=== PATIENT | male | born 2000 | race Caucasian/White ===

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

== ENCOUNTER 2020-07-13 01:17 | Inpatient (IN) | payer MEDICAID, OTHER ==
--- NOTE | 2020-07-13 01:58 | ED ---
Psych HPI - General Chief Complaint: Psychiatric Symptoms Stated Complaint: Mental Health Time Seen by Provider: 07/13/20 01:36 Source: patient, police, RN notes reviewed, old records reviewed Mode of arrival: ambulatory - History of Present Illness Initial Comments: This is a 20-year-old male DF for evaluation petition for psychiatric evaluation alert denying. Patient states he did say he wanted to kill himself but denies being suicidal currently. Patient does admit to benzodiazepine use. Otherwise he denies any other significant complaints. Again reiterates that he is not homicidal or suicidal patient presents by police department under petition by mother for psychiatric evaluation MD Complaint: suicidal ideation, feels depressed -: days(s) Associated Psychiatric Symptoms: depression, suicidal ideation History of same: Yes Quality: constant Improves With: none Worsens With: none Context: not taking psychiatric medications Associated Symptoms: denies other symptoms Treatments Prior to Arrival: placed on mental health hold If Self Harm: admits thoughts of self harm - Related Data Home Medications Medication Instructions Recorded Confirmed Escitalopram [Lexapro] 5 mg PO DAILY 11/04/19 11/05/19 Ondansetron Odt [Zofran ODT] 4 mg PO TID PRN 11/05/19 11/05/19 hydrOXYzine pamoate [hydrOXYzine 50 mg PO BID PRN 11/05/19 11/05/19 PAMOATE] Previous Rx's Medication Instructions Recorded Famotidine [Pepcid] 20 mg PO BID #30 tablet 11/06/19 Allergies Allergy/AdvReac Type Severity Reaction Status Date / Time No Known Allergies Allergy Verified 07/13/20 01:27 Review of Systems ROS Statement: Those systems with pertinent positive or pertinent negative responses have been documented in the HPI. ROS Other: All systems not noted in ROS Statement are negative. Past Medical History Past Medical History: No Reported History History of Any Multi-Drug Resistant Organisms: None Reported Past Surgical History: No Surgical Hx Reported Past Psychological History: Anxiety, Panic Disorder, PTSD Smoking Status: Never smoker Past Alcohol Use History: None Reported Past Drug Use History: Prescription Drug Abuse - Past Family History Mother Additional Family Medical History / Comment(s): anxiety General Exam General appearance: alert, in no apparent distress Head exam: Present: atraumatic, normocephalic, normal inspection Eye exam: Present: normal appearance, PERRL, EOMI. Absent: scleral icterus, conjunctival injection, periorbital swelling ENT exam: Present: normal exam, mucous membranes moist Neck exam: Present: normal inspection. Absent: tenderness, meningismus, lymphadenopathy Respiratory exam: Present: normal lung sounds bilaterally. Absent: respiratory distress, wheezes, rales, rhonchi, stridor Cardiovascular Exam: Present: regular rate, normal rhythm, normal heart sounds. Absent: systolic murmur, diastolic murmur, rubs, gallop, clicks GI/Abdominal exam: Present: soft, normal bowel sounds. Absent: distended, tenderness, guarding, rebound, rigid Extremities exam: Present: normal inspection, full ROM, normal capillary refill. Absent: tenderness, pedal edema, joint swelling, calf tenderness Back exam: Present: normal inspection Neurological exam: Present: alert, oriented X3, CN II-XII intact Psychiatric exam: Present: normal affect, normal mood Skin exam: Present: warm, dry, intact, normal color. Absent: rash Course Vital Signs 07/13/20 01:21 Temperature 98.4 F Pulse Rate 78 Respiratory 20 Rate Blood Pressure 111/74 O2 Sat by Pulse 100 Oximetry - Reevaluation(s) Reevaluation #1: 07/13/20 03:14 Medical record is reviewed 07/13/20 03:14 Medical clear for psychiatric evaluation Reevaluation #2: 07/13/20 05:16 Patient is seen by psychiatry here in the ER Medical Decision Making - Medical Decision Making 28-year-old male DF for evaluation patient will be admitted for psychiatric evaluation and treatment - Lab Data Result diagrams: 07/13/20 04:08 07/13/20 04:08 Lab Results 07/13/20 07/13/20 07/13/20 Range/Units 03:08 04:08 04:08 WBC 5.0 (4.0-11.0) k/uL RBC 5.25 (4.30-5.90) m/uL Hgb 15.7 (13.0-17.5) gm/dL Hct 46.9 (39.0-53.0) % MCV 89.3 (80.0-100.0) fL MCH 30.0 (25.0-35.0) pg MCHC 33.5 (31.0-37.0) g/dL RDW 12.6 (11.5-15.5) % Plt Count 269 (150-450) k/uL MPV 6.5 Neutrophils % 55 % Lymphocytes % 30 % Monocytes % 9 % Eosinophils % 4 % Basophils % 1 % Neutrophils # 2.8 (1.3-7.7) k/uL Lymphocytes # 1.5 (1.0-4.8) k/uL Monocytes # 0.4 (0-1.0) k/uL Eosinophils # 0.2 (0-0.7) k/uL Basophils # 0.1 (0-0.2) k/uL PT 11.2 (9.0-12.0) sec INR 1.1 (<1.2) Sodium (137-145) mmol/L Potassium (3.5-5.1) mmol/L Chloride (98-107) mmol/L Carbon Dioxide (22-30) mmol/L Anion Gap mmol/L BUN (9-20) mg/dL Creatinine (0.66-1.25) mg/dL Est GFR (CKD-EPI)AfAm (>60 ml/min/1.73 sqM) Est GFR (CKD-EPI)NonAf (>60 ml/min/1.73 sqM) Glucose (74-99) mg/dL Calcium (8.4-10.2) mg/dL Phosphorus (2.5-4.5) mg/dL Magnesium (1.6-2.3) mg/dL Total Bilirubin (0.2-1.3) mg/dL AST (17-59) U/L ALT (4-49) U/L Alkaline Phosphatase (38-126) U/L Creatine Kinase (55-170) U/L CK-MB (CK-2) (0.0-2.4) ng/mL Total Protein (6.3-8.2) g/dL Albumin (3.5-5.0) g/dL Lipase (23-300) U/L Salicylates mg/dL Urine Opiates Screen Not Detected (NotDetected) Ur Oxycodone Screen Not Detected (NotDetected) Urine Methadone Screen Not Detected (NotDetected) Ur Propoxyphene Screen Not Detected (NotDetected) Acetaminophen ug/mL Ur Barbiturates Screen Not Detected (NotDetected) U Tricyclic Antidepress Not Detected (NotDetected) Ur Phencyclidine Scrn Not Detected (NotDetected) Ur Amphetamines Screen Not Detected (NotDetected) U Methamphetamines Scrn Not Detected (NotDetected) U Benzodiazepines Scrn Detected H (NotDetected) Urine Cocaine Screen Not Detected (NotDetected) U Marijuana (THC) Screen Detected H (NotDetected) Serum Alcohol mg/dL 07/13/20 07/13/20 Range/Units 04:08 04:08 WBC (4.0-11.0) k/uL RBC (4.30-5.90) m/uL Hgb (13.0-17.5) gm/dL Hct (39.0-53.0) % MCV (80.0-100.0) fL MCH (25.0-35.0) pg MCHC (31.0-37.0) g/dL RDW (11.5-15.5) % Plt Count (150-450) k/uL MPV Neutrophils % % Lymphocytes % % Monocytes % % Eosinophils % % Basophils % % Neutrophils # (1.3-7.7) k/uL Lymphocytes # (1.0-4.8) k/uL Monocytes # (0-1.0) k/uL Eosinophils # (0-0.7) k/uL Basophils # (0-0.2) k/uL PT (9.0-12.0) sec INR (<1.2) Sodium 139 (137-145) mmol/L Potassium 4.4 (3.5-5.1) mmol/L Chloride 100 (98-107) mmol/L Carbon Dioxide 28 (22-30) mmol/L Anion Gap 11 mmol/L BUN 17 (9-20) mg/dL Creatinine 1.14 (0.66-1.25) mg/dL Est GFR (CKD-EPI)AfAm >90 (>60 ml/min/1.73 sqM) Est GFR (CKD-EPI)NonAf >90 (>60 ml/min/1.73 sqM) Glucose 105 H (74-99) mg/dL Calcium 10.3 H (8.4-10.2) mg/dL Phosphorus 4.8 H (2.5-4.5) mg/dL Magnesium 2.3 (1.6-2.3) mg/dL Total Bilirubin 1.0 (0.2-1.3) mg/dL AST 20 (17-59) U/L ALT 13 (4-49) U/L Alkaline Phosphatase 57 (38-126) U/L Creatine Kinase 117 (55-170) U/L CK-MB (CK-2) 0.4 (0.0-2.4) ng/mL Total Protein 7.9 (6.3-8.2) g/dL Albumin 4.9 (3.5-5.0) g/dL Lipase 140 (23-300) U/L Salicylates <1.0 mg/dL Urine Opiates Screen (NotDetected) Ur Oxycodone Screen (NotDetected) Urine Methadone Screen (NotDetected) Ur Propoxyphene Screen (NotDetected) Acetaminophen <10.0 ug/mL Ur Barbiturates Screen (NotDetected) U Tricyclic Antidepress (NotDetected) Ur Phencyclidine Scrn (NotDetected) Ur Amphetamines Screen (NotDetected) U Methamphetamines Scrn (NotDetected) U Benzodiazepines Scrn (NotDetected) Urine Cocaine Screen (NotDetected) U Marijuana (THC) Screen (NotDetected) Serum Alcohol <10 mg/dL - EKG Data -: EKG Interpreted by Me (EKG is sinus rhythm 69 MA 164 QRS 92 QTC 420) Disposition Clinical Impression: Benzodiazepine withdrawal, Depression, Suicidal ideation Disposition: TRANSFER TO PSYCH HOSP/UNIT Condition: Fair Is patient prescribed a controlled substance at d/c from ED?: No Referrals: None,Stated [Primary Care Provider] - 1-2 days
[2020-07-13 03:40] LABS: Amphetamine Screen,Urine Not Detected (NotDetected); Barbiturate Screen,Urine Not Detected (NotDetected); Benzodiazepines Screen,Urine Detected (NotDetected); Cocaine Screen,Urine Not Detected (NotDetected); Methadone Screen, Urine Not Detected (NotDetected); Opiate Screen,Urine Not Detected (NotDetected); Oxycodone Screen, Urine Not Detected (NotDetected); Phencyclidine Screen,Urine Not Detected (NotDetected); Tricyclic Antidepressant,Urine Not Detected (NotDetected); Urn Cannabinoid Scrn Detected (NotDetected)
[2020-07-13 04:35] LABS: Basophils # (A) 0.1 k/uL (0-0.2); Basophils % (A) 1 %; Eosinophils # (A) 0.2 k/uL (0-0.7); Eosinophils % (A) 4 %; HCT 46.9 % (39.0-53.0); HGB 15.7 gm/dL (13.0-17.5); Lymphocytes # (A) 1.5 k/uL (1.0-4.8); Lymphocytes % (A) 30 %; MCHC 33.5 g/dL (31.0-37.0); MCV 89.3 fL (80.0-100.0); Mean Platelet Volume 6.5; Monocytes # (A) 0.4 k/uL (0-1.0); Monocytes % (A) 9 %; Neutrophils # (A) 2.8 k/uL (1.3-7.7); Neutrophils % (A) 55 %; Platelet Count 269 k/uL (150-450); RBC 5.25 m/uL (4.30-5.90); RDW 12.6 % (11.5-15.5)
[2020-07-13] MEDS ORDERED: LORazepam 2 MG/ML INJ IM STA (04:37)
[2020-07-13 04:52] LABS: INR 1.1 (<1.2); Prothrombin Time 11.2 sec (9.0-12.0)
[2020-07-13 04:53] LABS: ALT 13 U/L (4-49); AST 20 U/L (17-59); Acetaminophen <10.0 ug/mL; African American GFR (CKD) >90 (>60 ml/min/1.73 sqM); Albumin 4.9 g/dL (3.5-5.0); Alcohol <10 mg/dL; Alkaline Phosphatase 57 U/L (38-126); Anion Gap 11 mmol/L; Blood Urea Nitrogen 17 mg/dL (9-20); Calcium 10.3 mg/dL (8.4-10.2); Carbon Dioxide 28 mmol/L (22-30); Chloride 100 mmol/L (98-107); Creatine Kinase 117 U/L (55-170); Glucose 105 mg/dL (74-99); Lipase 140 U/L (23-300); Magnesium 2.3 mg/dL (1.6-2.3); Non-African American GFR(CKD) >90 (>60 ml/min/1.73 sqM); Phosphorus 4.8 mg/dL (2.5-4.5); Potassium 4.4 mmol/L (3.5-5.1); Salicylate <1.0 mg/dL; Sodium 139 mmol/L (137-145); Total Protein 7.9 g/dL (6.3-8.2)
[2020-07-13] MEDS ORDERED: ACETAMINOPHEN TAB 325 MG TAB PO PRN (05:44)
[2020-07-13] MEDS ORDERED: MAG HYDROX/AL HYDROX/SIMETH 30 ML CUP PO PRN (05:44)
[2020-07-13] MEDS ORDERED: MAGNESIUM HYDROXIDE 2,400 MG/10 ML CUP PO PRN (05:44)
[2020-07-13] MEDS ORDERED: HALOPERIDOL LACTATE 5 MG/ML 1 ML VIAL IM PRN (05:48)
[2020-07-13] MEDS: haloperidoL 5 MG TAB PO PRN ×2 (06:05→14:11)
[2020-07-13] MEDS: ESCITALOPRAM 5 MG TAB PO SCH (11:43)
[2020-07-13] MEDS: NICOTINE 14MG/24HR PATCH TRANSDERM SCH (11:43)
[2020-07-13 13:55] VITALS: BMI 3905.5
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
[2020-07-14 08:09] LABS: Calcium 10.2 mg/dL (8.4-10.2)
[2020-07-14] MEDS: NICOTINE 14MG/24HR PATCH TRANSDERM SCH (08:27)
[2020-07-14] MEDS: haloperidoL 5 MG TAB PO PRN (08:28)
[2020-07-14] MEDS: ESCITALOPRAM 5 MG TAB PO SCH (12:05)
[2020-07-14] MEDS ORDERED: LORazepam 2 MG/ML INJ IM STA (13:59)
[2020-07-14 15:07] LABS: Hemoglobin A1C 5.1 % (4.0-6.0)
--- NOTE | 2020-07-14 15:34 | P.PN ---
Progress Note - Text Progress Note Date: 07/14/20 Clinical Problems: Probable benzodiazepine overdose, benzodiazepine withdrawal, Benzodiazepine use disorder severe, rule out cognitive disorder due to closed head injury, rule out mood disorder secondary close head injury, personality disorder, rule out amphetamine use disorder, history of ADHD. Interim history: I reviewed the medical record and interviewed the patient. He demanded to be discharged from the hospital. He repeatedly denied that he had attempted suicide but unlike yesterday did not deny that he can expressed suicidal thoughts to his mother, his sister and the police. He kept repeating that he "has to leave" because they are "stealing from me." I explained that we have submitted the petition and supporting paperwork to probate court for involuntary hospitalization. We cannot discharge him until at least he meets with his document review attorney. When he realized that he cannot talk talk me into discharge him he began to flail his arms and a spastic manner. He complained of feeling unwell, anxious and lightheaded. He then fell to the floor and began crying that he hit his head. I called nursing to assist in moving him to his room. He felt to the mireles on his way to the room. The level of distress with administered 1 mg of Ativan IM. Medical consultation appreciated. Mental status exam: He presented as a disheveled and unkempt young male who made eye contact and did not appear to fully attend or concentrate to the interview. He had no distinguishing features or prominent physical abnormalities. He had a distressed facial expression. He was initially alert and oriented to person and place. He showed spastic movements of the arm when he became distressed. His speech was spontaneous and perseverative. Affect was anxious anxious, demanding and angry. He did not express suicidal ideation, wishes or homicidal ideation. Express her feelings of helplessness over this hospitalization. Did not express ideas reference, paranoid ideation or delusions. His thinking was concrete and associations did not fully organized and goal directed. He denied hallucinations did not appear to be responding to internal stimuli. Assessment: Karolyn Young man who has a reported history of a closed head injury. He presented involuntarily after he made suicidal statements to several people including the police. He is demanding discharge and when he realized he would not be discharge he became acutely distressed and almost hysterical. Plan: Continue inpatient treatment. Computed tomography scan of the head. Safety precautions. Deferral hearing pending. Continue Lexapro 5 mg daily and Haldol 5 mg by mouth/IM every 6 hours for agitation acute psychosis. Habitrol for smoking cessation. Encourage participation in therapeutic groups and activities. Evaluate clinical status response to treatment on a daily basis.
--- NOTE | 2020-07-14 15:37 | CT ---
EXAMINATION TYPE: CT brain wo con DATE OF EXAM: 07/14/2020 COMPARISON: None HISTORY: 20-year-old female with pain after fall TECHNIQUE: Examination was done in axial plane without intravenous contrast. Coronal and sagittal r econstructions performed. CT DLP: 1144.7 mGycm Automated exposure control for dose reduction was used. FINDINGS: There is no evidence of acute intracranial hemorrhage, acute ischemic changes, mass, mass-effect, or extra-axial fluid collection. There is no effacement of cerebral sulci or basal subarachnoid cister ns. There is no hydrocephalus. There is no midline shift. Gonzalez-white matter distinction is preserv ed. There is normal variation with persistent CSP. Paranasal sinuses and mastoid air cells are well pneumatized. Orbits and globes are intact. IMPRESSION: No acute intracranial abnormality seen.
[2020-07-14] MEDS ORDERED: diphenhydrAMINE 25 MG CAP PO PRN (15:38)
[2020-07-14] MEDS: diphenhydrAMINE 50 MG/ML 1 ML VIAL IM PRN (15:47)
[2020-07-15] MEDS ORDERED: IBUPROFEN 600 MG TAB PO PRN (07:56)
[2020-07-15] MEDS ORDERED: LORazepam 1 MG TAB PO STA (07:58)
[2020-07-15] MEDS: diphenhydrAMINE 50 MG/ML 1 ML VIAL IM PRN ×2 (08:13→16:03)
[2020-07-15] MEDS: ESCITALOPRAM 5 MG TAB PO SCH (08:58)
[2020-07-15] MEDS: NICOTINE 14MG/24HR PATCH TRANSDERM SCH (09:04)
[2020-07-15] MEDS: chlordiazePOXIDE 25 MG CAP PO SCH ×3 (09:08→21:02)
[2020-07-15] MEDS ORDERED: LORazepam 2 MG/ML INJ IM PRN (09:56)
[2020-07-15] MEDS ORDERED: BENZTROPINE MESYLATE 1 MG TAB PO ONE (12:11)
--- NOTE | 2020-07-15 12:18 | XR ---
EXAMINATION TYPE: XR shoulder complete RT DATE OF EXAM: 07/15/2020 CLINICAL HISTORY: pain TECHNIQUE: Three views of the right shoulder are obtained. COMPARISON: None FINDINGS: There is no acute fracture/dislocation evident. The acromioclavicular and glenohumeral gutierrez int spaces appear within normal limits. The visualized ribs are intact and unremarkable. IMPRESSION: 1. There is no acute fracture or dislocation. ICD 10 NO FRACTURE, INITIAL EVALUATION
--- NOTE | 2020-07-15 12:19 | XR ---
EXAMINATION TYPE: XR thoracic spine complete DATE OF EXAM: 07/15/2020 CLINICAL HISTORY: pain TECHNIQUE: Frontal, lateral, and swimmer's view of thoracic spine are obtained. COMPARISON: None. FINDINGS: Thoracic spine show satisfactory alignment without evidence of acute fracture or dislocatio n. Vertebral body heights are preserved. Disc spaces are well preserved. Visualized ribs are unrem arkable. IMPRESSION: No acute fracture or dislocation is seen in the thoracic spine. ICD 10 NO FRACTURE, INIT IAL EVALUATION
--- NOTE | 2020-07-15 12:29 | P.PN ---
Progress Note - Text Progress Note Date: 07/15/20 Clinical Problems: Suicidal ideation (resolved), rule out suicide attempt by overdose of benzodiazepines, benzodiazepine use disorder severe, benzodiazepine withdrawal, substance-induced mood disorder, history of ADHD, history of closed head injury Interim history: I reviewed the medical record, interviewed the patient and discuss his treatment and treatment plan during team meeting. He again perseverated about discharge and during the interview again began to demonstrate spastic movements of the arm. He complained of neck stiffness and demanded to have a x-ray. Following his falls yesterday we ordered a computed tomography scan and x-rays of the shoulder and thoracic spine. He acknowledged that he has been using Xanax but gave different staff different information about amount and frequency. In general, he minimized his use and denied that he has been abusing the medication. For example, he told one of the nurses that he is taking between 10 and 20 "Xanibars" per day. He told me that he takes "about 10" of the "small dose" Xanax per day. According to the [facility] he has been prescribed 0.25 mg twice a day since September 2019. Interestingly, the psychiatrist began prescribing 15 day supplies of Xanax 2 months ago. Computed tomography scan of the head for intracranial abnormality. His shoulders x-ray showed no fracture or dislocation and a x-ray of the thoracic spine did not show fracture or dislocation. Mental status exam: Appendectomy presented as a disheveled appearing young male who was initially sitting comfortably in bed. As began talking about this hospitalization, his symptoms and treatments he began to contract his neck and showed spasmodic movements of the arms. He had a puzzled expression on his face. He was alert and oriented to person, place and time. His speech was slow soft not dysarthric. His affect was blunted. He denied suicidal ideation, wishes or homicidal ideation. He did not express feelings of hopelessness, helplessness and worthlessness. He did not express ideas reference, paranoid ideation or delusions. His thinking remains concrete but her associations were organized and goal directed. He denied hallucinations did not appear to be responding to internal stimuli. Assessment: He is having signs and symptoms of acute benzodiazepine withdrawal. Plan: Continue inpatient treatment. Safety precautions. Probate hearing pending. Begin a Librium taper for the treatment of the benzodiazepine withdraw al. Ativan 1 mg IM or by mouth for increased agitation or anxiety. Benadryl and/or Cogentin for complaints of muscle contractures. Limit Haldol to only agitation or aggression. Encourage participation in therapeutic groups and activities. Evaluate clinical status response to treatment daily basis.
--- NOTE | 2020-07-15 16:38 | P.PN ---
<Marshall Moses - Last Filed: 07/15/20 16:21> Subjective Progress Note Date: 07/15/20 Principal diagnosis: Hospital course: Patient is a 20-year-old male with a past medical history of PTSD, depression, and marijuana use/abuse whom is currently admitted to the mental health unit after being petition by PD for reports of suicidal ideations. Received called to bedside this morning for reports of patient reporting pain to his right shoulder secondary to reported fall that reportedly occurred yesterday. Went to bedside to assess, patient reporting pain and difficulty moving right shoulder as well as pain in the midthoracic region of the back upon palpation. Orders to replace for x-ray thoracic spine and right shoulder. X-ray right shoulder negative for acute fracture or dislocation revealing acromioclavicular and glenohumeral joint spaces are within normal limits. X-ray thoracic spine negative for acute fracture or dislocation. Orders placed for Tylenol and/or Motrin as needed for pain. Physical exam: General: non toxic, no distress, appears at stated age Derm: warm, dry Head: atraumatic, normocephalic, symmetric Eyes: EOMI, no lid lag, anicteric sclera Mouth: no lip lesion, mucus membranes moist Cardiovascular: S1S2 reg, no murmur, positive posterior tibial pulse bilateral, Lungs: CTA bilateral, no rhonchi, no rales , no accessory muscle use Abdominal: soft, nontender to palpation, no guarding, no appreciable organomegaly Ext: no gross muscle atrophy, no edema, no contractures Neuro: CN II-XI grossly intact, no focal neuro deficits Psych: Alert, oriented, appropriate affect Plan of care: Shoulder pain from reported fall -X-ray right shoulder negative for acute fracture or dislocation revealing acromioclavicular and glenohumeral joint spaces are within normal limits. -Symptomatic treatment and pain management with Tylenol and/or Motrin and application of heat/ice as needed. Back pain from reported fall -X-ray thoracic spine negative for acute fracture or dislocation. -Symptomatic treatment and pain management with Tylenol and/or Motrin and application of heat/ice as needed. Hypercalcemia, resolved Marijuana and benzodiazepine abuse -Patient was advised to and to be provided with continued education and encouragement on the importance of cessation and risks of continued abuse up to and including . Depression and suicidal ideations -Continue suicidal precautions. -Management as per primary admitting psychiatric team. Thank you for allowing us to participate in the care of this pleasant patient. Do not hesitate to contact us with questions. Someone can be reached from the [facility] hospitalist group all hours of the day at [phone] or via perfect serve. Objective - Vital Signs Vital signs: Vital Signs Temp 1400 F H 07/14/20 14:27 Pulse 113 H 07/15/20 09:31 Resp 14 07/14/20 18:05 BP 131/74 07/15/20 09:31 Pulse Ox 97 07/14/20 18:05 - Labs CBC & Chem 7: 07/13/20 04:08 07/13/20 04:08 <Pili Ayoub - Last Filed: 07/15/20 18:32> Subjective Principal diagnosis: I discussed the care with Marshall Moses NP and reviewed the findings and plan as documented in the note above. I did not staff this patient on this date. Objective - Vital Signs Vital signs: Vital Signs Temp 98.2 F 07/15/20 15:22 Pulse 107 H 07/15/20 15:22 Resp 20 07/15/20 15:22 BP 129/64 07/15/20 15:22 Pulse Ox 96 07/15/20 15:22 - Labs CBC & Chem 7: 07/13/20 04:08 07/13/20 04:08 Labs: Abnormal Lab Results - Last 24 Hours (Table) 07/15/20 Range/Units 13:42 Creatine Kinase 879 H (55-170) U/L
[2020-07-16] MEDS: NICOTINE 14MG/24HR PATCH TRANSDERM SCH (08:00)
[2020-07-16] MEDS: chlordiazePOXIDE 25 MG CAP PO SCH (08:01)
[2020-07-16] MEDS: ESCITALOPRAM 5 MG TAB PO SCH (08:01)
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
[2020-07-16 13:37] VITALS: BP 125/75; PULSE 94; RESP 16; TEMP 97.9
[2020-07-17] MEDS ORDERED: chlordiazePOXIDE 25 MG CAP PO SCH (09:00)
== END 2020-07-16 14:28 | disposition home or self-care (01) | DRG 881 ==
LOC: EC 01:17 → 3MHU 05:41
PROVIDERS: ADMIT Psychiatry & Neurology Psychiatry; ATTEND Psychiatry & Neurology Psychiatry
DX: F32.9 Major depressive disorder, single episode, unspecified (principal); F13.239 Sedative, hypnotic or anxiolytic dependence with withdrawal, unspecified; F41.0 Panic disorder [episodic paroxysmal anxiety]; F43.10 Post-traumatic stress disorder, unspecified; F60.9 Personality disorder, unspecified; F90.9 Attention-deficit hyperactivity disorder, unspecified type; F12.10 Cannabis abuse, uncomplicated; T42.4X2A Poisoning by benzodiazepines, intentional self-harm, initial encounter; Z87.828 Personal history of other (healed) physical injury and trauma; F17.211 Nicotine dependence, cigarettes, in remission; M43.6 Torticollis; W18.30XA Fall on same level, unspecified, initial encounter; Z62.810 Personal history of physical and sexual abuse in childhood; Z65.3 Problems related to other legal circumstances; Z79.899 Other long term (current) drug therapy; E83.52 Hypercalcemia; Z20.822 Contact with and (suspected) exposure to COVID-19
CPT/HCPCS: 36415; 70450; 72072; 80053; 80061; 80143; 80179; 80306; 80320; 82075; 82310; 82550; 82553; 83036; 83690; 83735; 84100; 85025; 85610; 87635; 93005; 96372; 99285

== ENCOUNTER 2021-06-15 02:34 | Emergency (ER) | payer BC, OTHER ==
[2021-06-15 02:41] VITALS: BP 113/72; PULSE 65; RESP 20; TEMP 97.3
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
== END 2021-06-15 03:42 | disposition home or self-care (01) ==
LOC: EC 02:34
DX: S71.112A Laceration without foreign body, left thigh, initial encounter (principal); S00.83XA Contusion of other part of head, initial encounter; W22.8XXA Striking against or struck by other objects, initial encounter; Y92.810 Car as the place of occurrence of the external cause
CPT/HCPCS: 99283

== ENCOUNTER 2022-03-24 22:43 | Emergency (ER) | payer OTHER ==
[2022-03-24 23:00] VITALS: TEMP 98
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
--- NOTE | 2022-03-24 23:38 | XR ---
EXAMINATION TYPE: XR shoulder complete LT DATE OF EXAM: 03/24/2022 COMPARISON: NONE HISTORY: Pain TECHNIQUE: 3 views FINDINGS: There is anterior dislocation of the left shoulder joint. No fracture seen. The AC joint is intact. Clavicle is intact. IMPRESSION: Anterior left shoulder joint dislocation. No fracture seen.
[2022-03-24] MEDS ORDERED: KETOROLAC 15 MG/ML 1 ML VIAL IVP STA (23:42)
[2022-03-24] MEDS ORDERED: PROPOFOL 10 MG/ML 20 ML VIAL IV ONE (23:42)
[2022-03-24] MEDS ORDERED: SODIUM CHLORIDE 0.9% 500 ML 500 ML IV STA (23:43)
[2022-03-25 00:45] VITALS: RESP 16
[2022-03-25] MEDS ORDERED: PROPOFOL 10 MG/ML 20 ML VIAL IV ONE (00:58)
[2022-03-25] MEDS: KETAMINE 10 MG/ML 20 ML VIAL IV SCH ×3 (01:07→01:12)
[2022-03-25] MEDS ORDERED: LORazepam 2 MG/ML INJ IV STA (01:22)
--- NOTE | 2022-03-25 01:38 | XR ---
EXAMINATION TYPE: XR shoulder limited LT DATE OF EXAM: 03/25/2022 COMPARISON: NONE HISTORY: Post reduction TECHNIQUE: Single view FINDINGS: There is anatomic position of the glenohumeral joint. AC joint is intact. IMPRESSION: Anatomic reduction of the left shoulder joint. No fracture seen.
[2022-03-25 02:58] VITALS: BP 140/80; PULSE 95
== END 2022-03-25 02:45 | disposition home or self-care (01) ==
LOC: EC 22:43
DX: S43.005A Unspecified dislocation of left shoulder joint, initial encounter (principal); Z88.1 Allergy status to other antibiotic agents; F41.9 Anxiety disorder, unspecified; F12.90 Cannabis use, unspecified, uncomplicated; Y04.0XXA Assault by unarmed brawl or fight, initial encounter
CPT/HCPCS: 73030; 73020; 99283; 96374; 96375 ×4; 96361; J1885; J2704

== ENCOUNTER 2022-05-14 23:23 | Observation (INO) | payer OTHER ==
--- NOTE | 2022-05-14 23:53 | ED ---
Trauma HPI - General Chief Complaint: Extremity Injury, Upper Stated Complaint: Left Shoulder Dislocation Time Seen by Provider: 05/14/22 23:52 Source: patient, RN notes reviewed, old records reviewed Mode of arrival: ambulatory Limitations: no limitations - History of Present Illness MD Complaint: fall -: days(s) Loss of Consciousness: yes Location - Extremities: Left: Shoulder Severity scale (1-10): 10 Consistency: constant Context: mechanical fall Associated Symptoms: denies other symptoms Treatments Prior to Arrival: oxygen - Related Data Previous Rx's Medication Instructions Recorded Acetaminophen Tab [Tylenol] 650 mg PO Q4HR PRN tab 07/16/20 Escitalopram [Lexapro] 5 mg PO DAILY 30 Days tab 07/16/20 Ibuprofen [Motrin] 600 mg PO QID PRN tab 07/16/20 Nicotine 14Mg/24Hr Patch [Habitrol] 1 patch TRANSDERM DAILY 14 Days 07/16/20 patch chlordiazePOXIDE HCl [Librium] 20 mg PO DAILY 3 Days cap 07/16/20 Allergies Allergy/AdvReac Type Severity Reaction Status Date / Time haloperidol [From Haldol] AdvReac Unknown Verified 05/14/22 23:29 Review of Systems ROS Statement: Those systems with pertinent positive or pertinent negative responses have been documented in the HPI. ROS Other: All systems not noted in ROS Statement are negative. Past Medical History Past Medical History: No Reported History History of Any Multi-Drug Resistant Organisms: None Reported Past Surgical History: No Surgical Hx Reported Past Psychological History: Anxiety, Panic Disorder, PTSD Smoking Status: Never smoker Past Alcohol Use History: Occasional Past Drug Use History: Marijuana - Past Family History Mother Additional Family Medical History / Comment(s): anxiety General Exam Limitations: no limitations General appearance: alert, in no apparent distress, anxious Head exam: Present: atraumatic, normocephalic, normal inspection Eye exam: Present: normal appearance, PERRL, EOMI. Absent: scleral icterus, conjunctival injection, periorbital swelling ENT exam: Present: normal exam, mucous membranes moist Neck exam: Present: normal inspection. Absent: tenderness, meningismus, lymphadenopathy Respiratory exam: Present: normal lung sounds bilaterally. Absent: respiratory distress, wheezes, rales, rhonchi, stridor Cardiovascular Exam: Present: normal rhythm, tachycardia, normal heart sounds. Absent: systolic murmur, diastolic murmur, rubs, gallop, clicks GI/Abdominal exam: Present: soft, normal bowel sounds. Absent: distended, tenderness, guarding, rebound, rigid Extremities exam: Present: normal inspection, full ROM, normal capillary refill. Absent: tenderness, pedal edema, joint swelling, calf tenderness Back exam: Present: normal inspection, tenderness (L shoulder) Neurological exam: Present: alert, oriented X3, CN II-XII intact Psychiatric exam: Present: normal affect, normal mood Skin exam: Present: warm, dry, intact, normal color. Absent: rash Course Vital Signs 05/14/22 05/15/22 05/15/22 23:25 01:17 01:29 Temperature 98.9 F Pulse Rate 105 H 116 H 113 H Respiratory 20 18 16 Rate Blood Pressure 140/96 135/97 138/99 O2 Sat by Pulse 96 98 99 Oximetry 05/15/22 05/15/22 01:34 01:37 Temperature Pulse Rate 104 H 105 H Respiratory 15 18 Rate Blood Pressure 147/98 138/92 O2 Sat by Pulse 97 98 Oximetry - Reevaluation(s) Reevaluation #1: 05/15/22 01:54 medical record is reviewed Medical Decision Making - EKG Data -: EKG Interpreted by Me (EKG is sinus 106 NH 166 QRS 90 QTC 381) Disposition Clinical Impression: Dislocation of shoulder region, Recurrent dislocation, left shoulder Disposition: ADMITTED IP TO THIS HOSP Condition: Fair Is patient prescribed a controlled substance at d/c from ED?: No Time of Disposition: 01:55
--- NOTE | 2022-05-15 00:30 | XR ---
EXAMINATION TYPE: XR shoulder limited LT DATE OF EXAM: 05/15/2022 COMPARISON: 03/24/2022 HISTORY: Pain. TECHNIQUE: 3 views FINDINGS: There is anterior dislocation of the glenohumeral joint. No fracture seen. Scapula is intac t. IMPRESSION: Anterior shoulder joint dislocation. Appearance is similar to old exam of 03/24/2022.
[2022-05-15] MEDS ORDERED: SODIUM CHLORIDE 0.9% 500 ML 500 ML IV STA ×2 (00:44→01:50)
[2022-05-15] MEDS ORDERED: PROPOFOL 10 MG/ML 20 ML VIAL IV STA (00:44)
[2022-05-15] MEDS ORDERED: PROPOFOL 10 MG/ML 20 ML VIAL IV ONE (01:33)
[2022-05-15] MEDS ORDERED: SODIUM CHLORIDE 0.9% 1,000 ML IV STA (01:50)
[2022-05-15] MEDS ORDERED: ONDANSETRON 4 MG/2 ML VIAL IVP PRN (01:50)
[2022-05-15] MEDS ORDERED: NALOXONE 0.4 MG/ML 1 ML VIAL IV PRN (01:50)
[2022-05-15] MEDS ORDERED: MORPHINE SULFATE 4 MG/ML SYRINGE IVP STA (02:09)
[2022-05-15 02:18] LABS: Basophils % (A) 0 %; Eosinophils # (A) 0.1 k/uL (0-0.7); Eosinophils % (A) 1 %; HCT 42.9 % (39.0-53.0); HGB 15.1 gm/dL (13.0-17.5); Lymphocytes # (A) 0.7 k/uL (1.0-4.8); Lymphocytes % (A) 9 %; MCH 30.8 pg (25.0-35.0); MCHC 35.2 g/dL (31.0-37.0); MCV 87.6 fL (80.0-100.0); Mean Platelet Volume 7.1; Monocytes # (A) 0.4 k/uL (0-1.0); Monocytes % (A) 5 %; Neutrophils # (A) 6.8 k/uL (1.3-7.7); Neutrophils % (A) 85 %; Platelet Count 267 k/uL (150-450); RBC 4.89 m/uL (4.30-5.90); RDW 11.8 % (11.5-15.5)
--- NOTE | 2022-05-15 02:26 | XR ---
EXAMINATION TYPE: XR shoulder limited LT DATE OF EXAM: 05/15/2022 COMPARISON: NONE HISTORY: Post reduction TECHNIQUE: Single view FINDINGS: Single view of the left shoulder shows persistent anterior dislocation of the glenohumeral joint. No fracture seen. IMPRESSION: Persistent anterior dislocation.
[2022-05-15 02:31] LABS: ALT 21 U/L (4-49); AST 27 U/L (17-59); African American GFR (CKD) >90 (>60 ml/min/1.73 sqM); Albumin 4.9 g/dL (3.5-5.0); Alkaline Phosphatase 107 U/L (38-126); Anion Gap 9 mmol/L; Blood Urea Nitrogen 17 mg/dL (9-20); Calcium 9.6 mg/dL (8.4-10.2); Carbon Dioxide 25 mmol/L (22-30); Chloride 105 mmol/L (98-107); Glucose 113 mg/dL (74-99); Magnesium 1.9 mg/dL (1.6-2.3); Non-African American GFR(CKD) >90 (>60 ml/min/1.73 sqM); Phosphorus 3.7 mg/dL (2.5-4.5); Potassium 4.7 mmol/L (3.5-5.1); Sodium 139 mmol/L (137-145); Total Bilirubin 0.5 mg/dL (0.2-1.3); Total Protein 7.8 g/dL (6.3-8.2)
[2022-05-15] MEDS: MORPHINE SULFATE 4 MG/ML SYRINGE IVP PRN ×3 (05:16→11:57)
[2022-05-15 08:03] VITALS: RESP 18
[2022-05-15 15:00] VITALS: BP 124/83; PULSE 89; TEMP 98.3
--- NOTE | 2022-05-15 15:18 | XR ---
EXAMINATION TYPE: XR shoulder limited LT DATE OF EXAM: 05/15/2022 2:54 PM INDICATION: Patient age:Male; 21 years old; Reason for study: recurrent shoulder dislocation/self reduced; COMPARISON: Same date 05/15/2022. TECHNIQUE: The left shoulder was examined in frontal FINDINGS: Reduction of anterior inferior left shoulder dislocation compared to priors. There is no ev idence of fracture. IMPRESSION: Interval reduction of left shoulder dislocation. No evidence fracture.
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
== END 2022-05-15 17:42 | disposition other institution (70) ==
LOC: EC 23:23 → 4SSUR 05-15 01:52
PROVIDERS: ADMIT Orthopaedic Surgery Sports Medicine; ATTEND Orthopaedic Surgery Sports Medicine
DX: M24.412 Recurrent dislocation, left shoulder (principal); F41.0 Panic disorder [episodic paroxysmal anxiety]; F43.10 Post-traumatic stress disorder, unspecified; F41.9 Anxiety disorder, unspecified; Z79.899 Other long term (current) drug therapy; Z88.8 Allergy status to other drugs, medicaments and biological substances; Z81.8 Family history of other mental and behavioral disorders; Y04.8XXA Assault by other bodily force, initial encounter; W19.XXXA Unspecified fall, initial encounter; Y92.149 Unspecified place in prison as the place of occurrence of the external cause
CPT/HCPCS: 96376; 96374; 96375; 99285; 93005; 80053; 83735; 84100; 84484; 85025; 73020; G0378; J2270; J2704

== ENCOUNTER 2023-11-14 10:57 | Inpatient (IN) | payer MEDICAID, OTHER ==
[2023-11-14 13:22] LABS: Amphetamine Screen,Urine Detected (NotDetected); Barbiturate Screen,Urine Not Detected (NotDetected); Benzodiazepines Screen,Urine Detected (NotDetected); Cocaine Screen,Urine Not Detected (NotDetected); Methadone Screen, Urine Not Detected (NotDetected); Opiate Screen,Urine Not Detected (NotDetected); Oxycodone Screen, Urine Not Detected (NotDetected); Phencyclidine Screen,Urine Not Detected (NotDetected); Tricyclic Antidepressant,Urine Detected (NotDetected); Urn Cannabinoid Scrn Detected (NotDetected)
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
[2023-11-14] MEDS ORDERED: MAG HYDROX/AL HYDROX/SIMETH 355 ML BOTTLE PO PRN (18:32)
[2023-11-14] MEDS ORDERED: MAGNESIUM HYDROXIDE 2,400 MG/30 ML CUP PO PRN (18:32)
[2023-11-14] MEDS ORDERED: ACETAMINOPHEN TAB 325 MG TAB PO PRN (18:32)
[2023-11-14] MEDS ORDERED: LORazepam 1 MG TAB PO PRN ×3 (18:34→20:37)
[2023-11-14] MEDS ORDERED: LORazepam 2 MG/ML INJ IM PRN (18:34)
[2023-11-14] MEDS ORDERED: flUPHENAZine 2.5 MG/ML (MDV) 10 ML VIAL IM PRN (18:35)
[2023-11-14] MEDS ORDERED: traZODone HCL 100 MG TAB PO PRN (18:35)
[2023-11-14 20:49] LABS: Appearance,Urine Clear (Clear); Bilirubin,Urine Negative (Negative); Blood,Urine Negative (Negative); Color,Urine Light Yellow; Glucose,Urine (UA) Negative (Negative); Ketones,Urine Negative (Negative); Leukocyte Esterase,Urine Negative (Negative); Nitrite,Urine Negative (Negative); PH, Urine 7.5 (5.0-8.0); Protein,Urine Negative (Negative); Specific Gravity,Urine 1.021 (1.001-1.035); Urobilinogen,Urine <2.0 mg/dL (<2.0)
--- NOTE | 2023-11-15 03:14 | P.PN ---
Progress Note - Text Progress Note Date: 11/15/23 Attempted to see the patient in the mental health unit. The patient refused to be seen or be evaluated.
[2023-11-15 08:58] LABS: Basophils % (A) 1 %; Eosinophils # (A) 0.1 k/uL (0-0.7); Eosinophils % (A) 4 %; HGB 14.6 gm/dL (13.0-17.5); Lymphocytes # (A) 1.4 k/uL (1.0-4.8); Lymphocytes % (A) 35 %; MCH 29.6 pg (25.0-35.0); MCHC 31.8 g/dL (31.0-37.0); MCV 93.2 fL (80.0-100.0); Mean Platelet Volume 7.1; Monocytes # (A) 0.3 k/uL (0-1.0); Monocytes % (A) 8 %; Neutrophils # (A) 1.9 k/uL (1.3-7.7); Neutrophils % (A) 50 %; Platelet Count 297 k/uL (150-450); RBC 4.94 m/uL (4.30-5.90); RDW 12.5 % (11.5-15.5); WBC 3.9 k/uL (3.8-10.6)
[2023-11-15] MEDS: NICOTINE 14MG/24HR PATCH TRANSDERM SCH (08:58)
[2023-11-15 09:13] LABS: ALT 19 U/L (4-49); AST 17 U/L (17-59); African American GFR (CKD) >90 (>60 ml/min/1.73 sqM); Albumin 4.5 g/dL (3.5-5.0); Alkaline Phosphatase 67 U/L (38-126); Anion Gap 7 mmol/L; Blood Urea Nitrogen 9 mg/dL (9-20); Calcium 9.9 mg/dL (8.4-10.2); Carbon Dioxide 28 mmol/L (22-30); Chloride 104 mmol/L (98-107); Glucose 91 mg/dL (74-99); Non-African American GFR(CKD) >90 (>60 ml/min/1.73 sqM); Sodium 139 mmol/L (137-145); Total Bilirubin 0.5 mg/dL (0.2-1.3); Total Protein 6.8 g/dL (6.3-8.2)
--- NOTE | 2023-11-15 10:32 | P.HP ---
Psychiatric H&P - . H&P Date: 11/15/23 History & Physical: Allergies Allergy/AdvReac Type Severity Reaction Status Date / Time haloperidol [From Haldol] AdvReac Severe Unknown Verified 11/14/23 20:29 Vital Signs Temp 97.6 F 11/14/23 20:32 Pulse 98 11/14/23 20:32 Resp 15 11/14/23 20:32 BP 137/88 11/14/23 20:32 Pulse Ox 98 11/14/23 20:32 FiO2 Intake & Output 11/14/23 11/15/23 11/15/23 18:59 06:59 18:59 Weight 86.183 kg 82.611 kg Laboratory Last Values WBC 3.9 k/uL (3.8-10.6) 11/15/23 07:39 RBC 4.94 m/uL (4.30-5.90) 11/15/23 07:39 Hgb 14.6 gm/dL (13.0-17.5) 11/15/23 07:39 Hct 46.0 % (39.0-53.0) 11/15/23 07:39 MCV 93.2 fL (80.0-100.0) 11/15/23 07:39 MCH 29.6 pg (25.0-35.0) 11/15/23 07:39 MCHC 31.8 g/dL (31.0-37.0) 11/15/23 07:39 RDW 12.5 % (11.5-15.5) 11/15/23 07:39 Plt Count 297 k/uL (150-450) 11/15/23 07:39 MPV 7.1 11/15/23 07:39 Neutrophils % 50 % 11/15/23 07:39 Lymphocytes % 35 % 11/15/23 07:39 Monocytes % 8 % 11/15/23 07:39 Eosinophils % 4 % 11/15/23 07:39 Basophils % 1 % 11/15/23 07:39 Neutrophils # 1.9 k/uL (1.3-7.7) 11/15/23 07:39 Lymphocytes # 1.4 k/uL (1.0-4.8) 11/15/23 07:39 Monocytes # 0.3 k/uL (0-1.0) 11/15/23 07:39 Eosinophils # 0.1 k/uL (0-0.7) 11/15/23 07:39 Basophils # 0.0 k/uL (0-0.2) 11/15/23 07:39 Sodium 139 mmol/L (137-145) 11/15/23 07:39 Potassium 5.0 mmol/L (3.5-5.1) 11/15/23 07:39 Chloride 104 mmol/L (98-107) 11/15/23 07:39 Carbon Dioxide 28 mmol/L (22-30) 11/15/23 07:39 Anion Gap 7 mmol/L 11/15/23 07:39 BUN 9 mg/dL (9-20) 11/15/23 07:39 Creatinine 0.99 mg/dL (0.66-1.25) 11/15/23 07:39 Est GFR (CKD-EPI)AfAm >90 (>60 ml/min/1.73 sqM) 11/15/23 07:39 Est GFR (CKD-EPI)NonAf >90 (>60 ml/min/1.73 sqM) 11/15/23 07:39 Glucose 91 mg/dL (74-99) 11/15/23 07:39 Calcium 9.9 mg/dL (8.4-10.2) 11/15/23 07:39 Total Bilirubin 0.5 mg/dL (0.2-1.3) 11/15/23 07:39 AST 17 U/L (17-59) 11/15/23 07:39 ALT 19 U/L (4-49) 11/15/23 07:39 Alkaline Phosphatase 67 U/L (38-126) 11/15/23 07:39 Total Protein 6.8 g/dL (6.3-8.2) 11/15/23 07:39 Albumin 4.5 g/dL (3.5-5.0) 11/15/23 07:39 TSH 1.210 mIU/L (0.465-4.680) 11/15/23 07:39 Urine Color Light Yellow 11/14/23 20:27 Urine Appearance Clear (Clear) 11/14/23 20:27 Urine pH 7.5 (5.0-8.0) 11/14/23 20:27 Ur Specific [place] 1.021 (1.001-1.035) 11/14/23 20:27 Urine Protein Negative (Negative) 11/14/23 20: Urine Glucose (UA) Negative (Negative) 11/14/23 20: Urine Ketones Negative (Negative) 11/14/23 20: Urine Blood Negative (Negative) 11/14/23 20: Urine Nitrite Negative (Negative) 11/14/23 20: Urine Bilirubin Negative (Negative) 11/14/23 20: Urine Urobilinogen <2.0 mg/dL (<2.0) 11/14/23 20: Ur Leukocyte Esterase Negative (Negative) 11/14/23 20:27 Urine Opiates Screen Not Detected (NotDetected) 11/14/23 11:20 Ur Oxycodone Screen Not Detected (NotDetected) 11/14/23 11:20 Urine Methadone Screen Not Detected (NotDetected) 11/14/23 11:20 Ur Barbiturates Screen Not Detected (NotDetected) 11/14/23 11:20 U Tricyclic Antidepress Detected (NotDetected) H 11/14/23 11:20 Ur Phencyclidine Scrn Not Detected (NotDetected) 11/14/23 11:20 Ur Amphetamines Screen Detected (NotDetected) H 11/14/23 11:20 U Methamphetamines Scrn Not Detected (NotDetected) 11/14/23 11:20 U Benzodiazepines Scrn Detected (NotDetected) H 11/14/23 11:20 Urine Cocaine Screen Not Detected (NotDetected) 11/14/23 11:20 U Marijuana (THC) Screen Detected (NotDetected) H 11/14/23 11:20 Influenza Type A (PCR) Not Detected (Not Detectd) 11/14/23 15:47 Influenza Type B (PCR) Not Detected (Not Detectd) 11/14/23 15:47 RSV (PCR) Not Detected (Not Detectd) 11/14/23 15:47 SARS-CoV-2 (PCR) Not Detected (Not Detectd) 11/14/23 15:47 11/15/23 10:32 Psychiatric Evaluation Identifying Data: Mr. Cardoza is 23 years old, single, white male, who lives in [place], [place] with his mother and step-father. Chief Complaint: I stopped my medication a month ago History of Psychiatric Illness- The patient noted that he stopped taking his medications a month ago and experienced relapse of his symptoms. He reported symptoms of being watched, people, listening to him and trying to get him, agitated, anxious, hearing voices, social isolation, loss of interest, hopelessness, and suicidal.He is denying suicidal thoughts now. The patient noted that he is, super-depressed. The patient noted that he was taking Seroquel XR 100 mg t bedtime and 25 mg twice a day. The dose was increased to Seroquel XR 150 mg twice a day. The patient does not know the reason. He stopped it because he could not function at his job. He works night shifts at [employer]. He stopped working there November 05 due to inability to work. He was working there for 3 months. The was patient doing fine since before the increase of medication. He goes to [facility]. Past Psychiatric History: The patient noted that his illness started around age 15-16. He was given Adderall, Lexapro and Klonopin for depression. He was admitted to this hospital. His psychiatrist has him diagnosed with Major depression and PTSD Past Medication History: None. Leading questions: The patient admitted to Depression and Anxiety. Denied SI or HI. Admitted to paranoia and hearing voices. Drugs and alcohol history: Xanax abuse, Marijuana, Alcohol. He has stopped abusing Xanax and Alcohol. He still uses Marijuana. Tobacco use: Vape Nicotine Past Medical history: None Family History of Psychiatric Disorder: The patient denied. No Suicide or Homicide history. Social History and Family History: The patient was born and raised in [place]. The patient grew-up with one sibling. He finished [employer]. 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 OTC: None Allergies: Bad side effects from Haldol Objective: MSE: Alert and attentive. Orientation times three Dressed and Groomed: Appropriately. Pleasant and cooperative. Psychomotor Activity: Normal. Speech: Normal in tone, quality, and quantity. Mood: Depressed and anxious. Affect: Consistent with mood. SI or HI: None. Perceptual disturbance: Hearing voices. Thought Content: Admitted to paranoia. No other delusional thinking noted. Thought Process: Normal. Cognition: Intact Judgment and Insight: Poor AIMS: Normal Labs: Available labs reviewed. Diagnosis: Major depressive disorder with psychosis. H/O PTSD. ADHD Plan and Recommendations: Continue current Medications. Add Seroquel 50 mg at bedtime and 25 mg bid as needed for anxiety and agitation, Lexapro 10 mg po in the morning. Monitor MS and side effects of medications and adjust medications accordingly. Provide supportive psychotherapy and psychoeducation. The patient provided psychoeducation. The patient provided with substance abuse counselling and advised to attend AA/NA Smoke cessation therapy. The patient to attend [facility]. CBC with Diff, CMP, TSH, HbA1c. Medication Consent with explanation of risk/benefits and side effects: Explained and obtained.
[2023-11-15] MEDS: QUEtiapine 50 MG TAB PO PRN (11:13)
[2023-11-15] MEDS: QUEtiapine 50 MG TAB PO SCH (20:33)
[2023-11-15] MEDS ORDERED: QUEtiapine 50 MG TAB PO SCH (21:00)
--- NOTE | 2023-11-16 00:46 | P.CONS ---
History of Present Illness - Reason for Consult Consult date: 11/16/23 - History of Present Illness The patient is a 23-year-old male with a PMH of PTSD and anxiety who was brought into the emergency room with complaints of depression and suicidal ideation. The patient was admitted to the mental health unit where he was seen and evaluated. Patient reports that he has been missing his medications as he was going through some stuff. He reports recreational Xanax abuse from the street. Also reports marijuana use. Denies any physical complaints at the time of interview. Denied experiencing chest discomfort, shortness of breath, fever, chills, cough, nausea, vomiting, abdominal pain, diarrhea. Review of systems: Pertinent positives and negatives as discussed in HPI, a complete review of systems was performed and all other systems are negative. Physical examination: General: non toxic, no distress, appears at stated age, overweight Derm: no unusual rashes/lesions, no unusual ecchymoses, warm, dry Head: atraumatic, normocephalic, symmetric Eyes: EOMI, no lid lag, anicteric sclera ENT: Nose and ears atraumatic, no thrush, no pharyngeal erythema Neck: trachea midline, supple Mouth: no lip lesion, mucus membranes moist Cardiovascular: S1S2 reg, no murmur, no edema Lungs: CTA bilateral, no rhonchi, no rales , no accessory muscle use Abdominal: soft, nontender to palpation, no guarding Ext: no gross muscle atrophy, no contractures, Neuro: No gross focal neuro deficits noted Psych: Alert, oriented, appropriate affect Assessment: Polysubstance abuse Depression and suicidal ideation Imaging: None performed Data Review: WC count 3.9, hemoglobin 14.6, sodium 139, potassium 5.0, BUN 9, creatinine 0.99, UA unremarkable, with urine toxicology positive for TCAs, amphetamines, benzodiazepines, and marijuana. Plan: Strongly advised on the importance of cessation from substance use Defer management of depression and suicidal ideation to the primary psychiatry service Thank you for allowing us to participate in the care of this patient. We will follow peripherally. Do not hesitate to contact us with questions. Someone can be reached from the [facility] hospitalist group at all hours of the day at [phone]. Past Medical History Past Medical History: No Reported History History of Any Multi-Drug Resistant Organisms: None Reported Past Surgical History: No Surgical Hx Reported Past Anesthesia/Blood Transfusion Reactions: No Reported Reaction Past Psychological History: Anxiety, Panic Disorder, PTSD Smoking Status: Vaper Past Alcohol Use History: Occasional Past Drug Use History: Marijuana - Past Family History Mother Additional Family Medical History / Comment(s): anxiety Medications and Allergies Home Medications Medication Instructions Recorded Confirmed Type QUEtiapine XR [SEROquel XR] 300 mg PO HS 11/14/23 11/14/23 History QUEtiapine [SEROquel] 25 mg PO BID PRN 11/14/23 11/14/23 History Allergies Allergy/AdvReac Type Severity Reaction Status Date / Time haloperidol [From Haldol] AdvReac Severe Unknown Verified 11/14/23 20:29 Results CBC & Chem 7: 11/15/23 07:39 11/15/23 07:39
[2023-11-16] MEDS: ESCITALOPRAM 10 MG TAB PO SCH (09:18)
--- NOTE | 2023-11-16 16:22 | P.PN ---
Progress Note - Text Progress Note Date: 11/16/23 Follow-up Mediation Review Chief Complaint: I feel better Subjective: The patient noted that his symptoms are improving. His voices, paranoia, depression have improved considerably. He is no more super depressed. He is not feeling suicidal or homicidal. He noted that his symptoms have improved 95%. He feels ready to go home. Discussed with patient and informed that his dose needs to be increased to achieve desired effects and stability. The patient understood and agreed. The patient has been attending the groups. The participation is good. The interaction with staff and peers is good. The patient is compliant with treatment recommendations. Leading questions: The patient admitted to mild Depression and Anxiety. Denied SI or HI. Denied symptoms consistent with psychosis Sleep and Appetite: Good. Change in family/ living/job/financial/daily routine: No change. Change in medical condition: No change. Change in medications: No change. Side effects from Medications: None. Objective- MSE: Alert and attentive. Orientation times three. Dressed and Groomed: Appropriately. Pleasant and cooperative. Psychomotor Activity: Normal. Speech: Normal in tone, quality, and quantity. Mood: Good. Affect: Appropriate. SI or HI: None. Perceptual disturbance: None. Thought Content: No paranoia or other delusional thinking noted. Thought Process: Normal. Cognition: Intact Judgment and Insight: Fair. AIMS: Normal. Labs: No new labs. Diagnosis: No change. Plan and Recommendations: Continue current Medications. Increase Seroquel to 150 mg hs. Monitor MS and side effects of medications and adjust medications accordingly. Provide supportive psychotherapy. The patient provided psychoeducation and advised The patient provided Substance abuse counseling. Smoke cessation therapy. The patient to attend [facility] activities. . Medication Consent with explanation of risk/benefits and side effects: Explained and obtained.
[2023-11-16] MEDS: IBUPROFEN 600 MG TAB PO PRN (18:27)
[2023-11-16] MEDS: QUEtiapine 100 MG TAB PO SCH (21:45)
[2023-11-17 06:50] VITALS: BP 98/51; PULSE 66; RESP 17; TEMP 98
== END 2023-11-17 12:45 | disposition home or self-care (01) | DRG 751 ==
LOC: EC 10:57 → 3MHU 18:22
PROVIDERS: ADMIT Psychiatry & Neurology Psychiatry; ATTEND Psychiatry & Neurology Psychiatry
DX: F32.3 Major depressive disorder, single episode, severe with psychotic features (principal); R45.851 Suicidal ideations; Z91.128 Patient's intentional underdosing of medication regimen for other reason; F13.10 Sedative, hypnotic or anxiolytic abuse, uncomplicated; F10.10 Alcohol abuse, uncomplicated; F41.0 Panic disorder [episodic paroxysmal anxiety]; F43.10 Post-traumatic stress disorder, unspecified; F14.90 Cocaine use, unspecified, uncomplicated; F90.9 Attention-deficit hyperactivity disorder, unspecified type; Z11.52 Encounter for screening for COVID-19; Z28.310 Unvaccinated for COVID-19; F17.290 Nicotine dependence, other tobacco product, uncomplicated; Z71.6 Tobacco abuse counseling; Z79.899 Other long term (current) drug therapy; Z59.819 Housing instability, housed unspecified; Z59.82 Transportation insecurity; Z71.51 Drug abuse counseling and surveillance of drug abuser
CPT/HCPCS: 80053; 80306; 81003; 82075; 83036; 84443; 85025; 87636; 99285